=== PATIENT | female | born 1960 | race Caucasian/White ===

== ENCOUNTER 2022-03-26 14:45 | Outpatient (CLI) | payer BC, SELFPAY ==
--- OUTSIDE RECORDS SUMMARY | 2022-04-09 09:07 | XMS_ITS | Clinical Summary ---
:1960 Author Organization [facility] [place] [address] Care Team Providers Name Role Phone Mi Morillo Primary Care Provider [phone] Allergies Active Allergy Reactions Severity Noted Date Comments Venom-Honey Bee Edema 07/29/2020 Pramipexole Dizziness 08/14/2012 Medications Medication Sig Dispensed Refills Start End Date Status Date multivitamin Take 1 tablet by 0 Active (MVI) tablet mouth once daily. 3 triamcinolone Apply topically 15 g 0 Active (ARISTOCORT) 0.5 to affected 7 % area(s) 3 times ointmentIndicatio daily. ns: Dermatitis polyethylene TAKE 17 GRAMS BY 1581 g 3 Active glycoL (MIRALAX) MOUTH ONCE A DAY 9 17 gram/dose DIRECTED powderIndications ADJUST TO SOFT : Chronic STOOL CONSISTENCY constipation meclizine Take 1 tablet by 20 tablet. 0 Ac tive (ANTIVERT) 25 mg mouth 3 times 1 tabletIndications daily if needed : for Vertigo. Lightheadedness, Benign positional vertigo, unspecified laterality gabapentin TAKE 1 TO 2 180 capsule. 4 Acti ve (NEURONTIN) 300 CAPSULES BY MOUTH 2 mg AT BEDTIME capsuleIndication s: Restless legs syndrome (RLS) lidocaine 4 % Apply a thin 30 g 0 Act lucas topical layer topically 2 gelIndications: four times daily Pelvic pain as needed. EPINEPHrine Inject 0.3 mg 2 Each 3 Acti ve (EPIPEN) 0.3 intramuscular 2 mg/0.3 mL each time if auto-injectorIndi needed for cations: History Allergic of colon polyps Reaction. valACYclovir TAKE 1 TABLET 180 Tablet 3 Ac tive (VALTREX) 500 mg (500 MG) BY MOUTH 2 tabletIndications 2 TIMES DAILY. : Oral herpes TAKE 1 TAB BY MOUTH 2 TIMES DAILY valACYclovir Take 1 Tablet 180 tablet. 1 04/04/20 D iscontinued (VALTREX) 500 mg (500 mg) by mouth 1 22 tabletIndications 2 times daily. : Oral herpes TAKE 1 TAB BY MOUTH 2 TIMES DAILY EPINEPHrine Inject 0.15 mL 0 04/04/20 Dis continued (AUVI-Q) 0.15 (0.15 mg) 1 22 mg/0.15 mL atIn intramuscular one auto-injectorIndi time if needed cations: History for Anaphylaxis. of colon polyps cefdinir Take 1 Capsule 14 Capsule 0 03/26/20 Expi red (OMNICEF) 300 mg (300 mg) by mouth 2 22 capsuleIndication two times daily s: Dysuria for 7 days. Active Problems Problem Noted Date Adenomatous colon polyp 07/26/2013 Overview: Colonoscopy 07/2013 polyp repeat in 5 yea rs Colonoscopy 03/2021 normal, repeat in 7 y ears Female stress incontinence 08/12/2012 Restless legs syndrome (RLS) 06/28/2011 Oral herpes 05/12/2010 JUDD III (cervical intraepithelial neoplasia grade III) with severe 11/08/2005 dysplasia Overview: 11/2005 Dobbins: JUDD 2-3. 01/2006 LEEP: JUDD 1 , suspicious for margin involvement. Pap plan: Pap/HPV testing due 02/2021 [facility] recommends: History of CIN2 - CIN3 : Cotesting every 3 years for 20 years. Encounters Date Type Specialty Care Team Description 2022 Ancillary Procedure 2022 Office Visit Mi Morillo Urinary Pro blem (DILSHAD [place] in urine- pain with urine, cant emp ty bladder, freque ncy, bladder leaks) 2022 Refill Mi Morillo Refill Requ est DILSHAD [place] (Epinephrine, Valacyclovir) 2022 Travel 03/21/2022 Telephone Matt Ginny E, John [employer] 03/19/2022 Office Visit Samuel Houser MD 03/19/2022 Travel from Last 3 Months Immunizations Name Administration Dates Next Due AMB Influenza, IIV4 PF (=>6 mos 05/06/2018 Flulaval,Fluzone Fluarix)(Flu Clinic Only) COVID-19 vaccine ([place] [facility] [employer] 11/07/2020, 10/17/2020 30mcg/0.3mL) PF, MDV Influenza, IIV3 (Age >=3 years) 06/01/2015, 05/07/2013, 05/11, 04/08/2011, 05/12/2010, 03/31/2009, 04/29/2008, 05/22/2007 Influenza, IIV4 04/25/2017, 07/12/2016, 04/15/2014 Td (Age >=7 Years) 01/08/2003 Tdap 11/20/2012 Zoster (Zostavax-ZVL, live) 10/20/2013 Family History Medical History Relation Name Comments Good Health Father Hypertension Mother Cancer-breast Paternal Aunt 1 Cancer-colon Paternal Aunt 1 diagnosed at 68 Cancer Paternal Aunt 2 Cancer-breast Sister Mastectomy Relation Name Status Comments Brother Car accident at age 16 years Father Mother Car accident [phone] Paternal Aunt 1 Paternal Aunt 2 Sister Social History Tobacco Use Types Packs/Day Years Used Date Never Smoker Smokeless Tobacco: Never Used Tobacco Cessation: Counseling Given: Yes Alcohol Use Standard Drinks/Week Comments Yes 0 (1 standard drink = 0.6 oz pure alcoho l) Extremely infrequently Sex Assigned at Date Recorded Not on file COVID-19 Exposure Response Date Recorded In the last 10 days, have you been in contact with No / Unsu re 2022 1:38 PM CDT someone who was confirmed or suspected to have Coronavirus/COVID-19? Obstetrics History Para Term AB IAB SAB Ectopic Multiple Living Live Births 3 2 2 1 2 Date Outcome GA Total Labor/2nd/3rd Weight Sex Delivery Anes PTL Michelle A 1 A5 Name Clin Labor Term Term AB Last Filed Vital Signs Vital Sign Reading Time Taken Comments Blood Pressure 143/93 2022 1:58 PM CDT Pulse 69 2022 1:58 PM CDT Temperature 36.5 ??C (97.7 ??F) 2022 1:58 PM CDT Respiratory Rate 16 03/19/2022 3:08 PM CDT Oxygen Saturation 97% 03/19/2022 3:08 PM CDT Inhaled Oxygen Concentration - - Weight 80.7 kg (178 lb) 2022 1:58 PM CDT Height 171.5 cm (5' 7.52) 11/24/2021 7:29 AM CDT Body Mass Index 27.45 11/24/2021 7:29 AM CDT Plan of Treatment Health Maintenance Due Date Last Done Comments Hepatitis C screening for age 0904/02/1980 18-79 Zoster (shingles) series for age 0612/15/2013 10/20/2013 50+ (2 of 3) COVID-19 vaccine series (3 - 01/02/2021 11/07/2020, 021 Booster for Pfizer series) Depression screening for age 12+ 07/29/2021 07/29/2020, 10/2018, 02/14/2018, Additional history exists Influenza for age 50-64 03/11/2022 05/06/2018, 04/25/2017, 07/12/2016, Additional history exists Mammogram for age 45-75 08/18/2022 08/18/2021, 07/29/2020, 03/14/2019, Additional history exists Tetanus booster 11/20/2022 11/20/2012, 01/08/2003 BMI (ht and wt on same day) for 11/24/2022 11/24/2021, 02/0 02/2022, age 18+ 07/29/2020, Additional history exists Lipids for age 45-75 08/18/2026 08/18/2021, 07/29/2020, 03/14/2019, Additional history exists Colonoscopy through age 75 03/20/2028 03/20/2021, , 07/24/2013, Additional history exists Tdap Completed 11/20/2012 Goals Goal Patient Goal Associated Recent Patient-Stated? Author Type Problems Progress BLOOD Blood Pressure No Detert, PRESSURE-DENEEN Hester Callie, JANE BP DO LESS THAN 130/80 Procedures Procedure Name Priority Date/Time Associated Diagnosis Comme nts CT ABDOMEN PELVIS W MENDOZA 2022 3:47 PM Pelvic pain Re sults for this CDT procedure are i n the results section. CREATININE,ISTAT Routine 2022 3:05 PM Observation or Res ults for this CDT evaluation for procedure are in suspected condition the resu lts section. CBC WITH AUTO Routine 2022 3:00 PM Dysuria Results for this DIFFERENTIAL CDT Pelvic pain procedure are i n the results section. CBC WITH AUTO Routine 2022 3:00 PM Dysuria Results for this DIFFERENTIAL CDT Pelvic pain procedure are i n the results section. URINE CULTURE Add On 2022 2:00 PM Dysuria Results for this CDT procedure are i n the results section. URINALYSIS Routine 2022 2:00 PM Dysuria Results f or this MICROSCOPIC CDT procedure are i n the results section. UA W/ SEDIMENT EXAM Routine 2022 2:00 PM Dysuria Re sults for this REFLEXED PER CRITERIA CDT proced ure are in the results section. URINE CULTURE Add On 03/19/2022 3:10 PM Dysuria Results for this CDT procedure are i n the results section. URINALYSIS STAT 03/19/2022 3:10 PM Dysuria Results f or this MICROSCOPIC CDT procedure are i n the results section. UA W/ SEDIMENT EXAM STAT 03/19/2022 3:10 PM Dysuria Re sults for this REFLEXED PER CRITERIA CDT proced ure are in the results section. from Last [address] ABDOMEN PELVIS W (2022 3:47 PM CDT) Anatomical Region Laterality Modality Abdomen, Pelvis, AORTA, LIVER, SPLEEN Co mputed Tomography Specimen (Source) Anatomical Collection Method Collection Time Re ceived Time Location / / Volume Laterality 2022 3:58 PM CDT Narrative 2022 3:58 PM CDT For Patients: ??As a result of the Cures Act, medical imaging exams and procedure report s are released immediately into your [facility] medical record. ??You may view this report before your referring provider. ??If you have questions, please contact your health care provider. Indication: Pelvic pain Technique: Postcontrast CT abdomen and pelvis. Oral water. 100 cc Omnipaque 350 intravenous contrast. Please note that all CT [facility] use dose modulation, iterative reconstruction, and/or weight-based dosing when appropriate to reduce radiation dose to as low as reasonably achievable. Comparison: None Findings: Mild dependent atelectasis in both lower lobes. Mild atelectasis within the anterior right middle lobe and lingula. No pleural effusion. No free intraperitoneal air. No intrahepatic mass or stigmata of cirrhosis. Gallbladder distended without biliary obstruction or calcified gallstone. Pancreas normal. Normal spleen. Adrenal glands unremarkable. No solid renal mass. No renal stone. Incidental small pa rapelvic cysts and extrarenal pelvis on the left. Small extrarenal pelvis on the right. No ureteral stone. No intra-abdominal or intrapelvic adenopathy. The bladder demonstrates a geometric peripherally calcified stone measuring 1.6 cm, serie s 2, image 165 and series 300, image 88. Bladder wall is not thickened. The uterus is absent. No pelvic soft tissue mass. No free fluid or abscess. Stool is prese nt throughout the colon. No bowel obstru ction or diverticulitis. The appendix is unremarkable. No fracture. Incidental bone island in the left femoral head. Impression: Unusual peripherally calcified stone wit hin the left posterior bladder measuring approximately 1.6 cm. No hydronephrosis. Status post hysterectomy without abscess . Increased stool in the colon suggesting constipation. Please note that all CT scans at this [facility] use dose modulation, iterative reconstruction, and/or weight-based dosing when appropriate to reduce radiation dose to as low as reasonably achievable. Dictated by Hector Claros MD @ Apr 02 022 ??3:58PM (Electronically Signed) ?? Procedure Note Hector Claros MD - 2022For matting of this note might be different from the original. For Patients: As a result of the ntury Cures Act, medical imaging exams and procedure reports are released immediately into your electronic medical record. You may view this report before your referring provider. If you have questions, please contact [facility] health care provider. Indication: Pelvic pain Technique: Postcontrast CT abdomen and pelvis. Oral water. 100 cc Omnipaque 350 intravenous contrast. Please note that all CT scans at this [facility] use dose modulation, iterative reconstruction, and/or weight-based dosing when appropriate to reduce radiation dose to as low as reasonably achievable. Comparison: None Findings: Mild dependent atelectasis in both lower lobes. Mild atelectasis within the anterior right middle lobe and lingula. No pleural effusion. No free intraperitoneal air. No intrahepatic mass or stigmata of cirrhosis. Gallbladder distended without biliary ob struction or calcified gallstone. Pancreas normal. Normal spleen. Adrenal glands unremarkable. No solid renal mass. No renal stone. Incidental small parapelvic cysts and extrarenal pelvis on the left. Small ext rarenal pelvis on the right. No ureteral stone. No intra-abdominal or intrapelvic adenopathy. The bladder demonstrates a geometric peripherally calcified stone measuring 1.6 cm, series 2, image 165 and series 300, imag e 88. Bladder wall is not thickened. The uterus is absent. No pelvic soft tissue mass. No free fluid or abscess. Stool is present throughout the colon. No bowel obstruction or diverticulitis. The appendix is unremark able. No fracture. Incidental bone island in the left femoral head. Impression: Unusual peripherally calcified stone wit hin the left posterior bladder measuring approximately 1.6 cm. No hydronephrosis. Status post hysterectomy without abscess . Increased stool in the colon suggesting constipation. Please note that all CT scans at this [facility] use dose modulation, iterative reconstruction, and/or weight-based dosing when appropriate to reduce radiation dose to as low as reasonably achievable. Dictated by Hector Claros MD @ Apr 02 2 022 3:58PM (Electronically Signed) Mi YUNG CT (ABNORMAL) CREATININE,ISTAT (2022 3:05 PM CDT) athologist Signature CREATININE, 0.80 0.57 - 2022 [facility] POCT 1.11 mg/dL 3:09 PM T [facility] Comment: Caution: Patients taking Hydrox yurea have falsely increased iStat Creatinine results. Verify creatinine results order ing a Creatinine (56399.2) eGFR 84 (L) >90 mL/min/1.73m2 2022 3:09 PM CDT [facility] [[email or web address]] Comment: As of 2021, eGFR is calcu lated by the CKD-EPI creatinine equation without race adjustment. eGFR can be inf luenced by muscle mass, exercise, and diet. The reported eGFR is an estimation only and is only applicable if the renal function is stable. Specimen Anatomical Collection Method Collection Time Receive d Time (Source) Location / / Volume Laterality Blood BLOOD SPECIMEN / 2022 3:05 PM 04/02 3:09 Unknown CDT PM CDT Mi YUNG CHEMISTRY Performing Organization Address City/State/ZIP Code Phon e Number [facility] [[email or web address]] [address] [place] [address] CBC WITH AUTO DIFFERENTIAL (2022 3:00 PM CDT) athologist Signature WHITE BLOOD 5.1 4.5 - 11.0 2022 [facility] COUNT thou/cu mm 3:12 PM [facility] RED BLOOD COUNT 4.54 4.00 - 2022 [facility] 5.20 3:12 PM T [place] mil/cu mm CLINIC HEMOGLOBIN 14.5 12.0 - 2022 [facility] 16.0 g/dL 3:12 PM [facility] HEMATOCRIT 42.1 33.0 - 2022 [facility] 51.0 % 3:12 PM [facility] MCV 93 80 - 100 2022 [facility] fL 3:12 PM [facility] MCH 31.9 26.0 - 2022 [facility] 34.0 pg 3:12 PM T [facility] MCHC 34.4 32.0 - 2022 [facility] 36.0 g/dL 3:12 PM [facility] RDW 13.4 11.5 - 2022 [facility] 15.5 % 3:12 PM [facility] PLATELET COUNT 145 140 - 440 2022 [facility] thou/cu mm 3:12 PM [facility] MPV 10.4 6.5 - 11.0 2022 [facility] fL 3:12 PM T [facility] % NEUT 50.9 % 2022 [facility] 3:12 PM CDT [facility] % LYMPH 35.9 % 2022 [facility] 3:12 PM CDT [facility] % MONO 10.6 % 2022 [facility] 3:12 PM CDT [facility] % EOS 2.0 % 2022 [facility] 3:12 PM CDT [facility] % BASO 0.6 % 2022 [facility] 3:12 PM CDT [facility] ABSOLUTE 2.6 1.7 - 7.0 2022 [facility] NEUTROPHILS thou/cu mm 3:12 PM CDT [facility] ABSOLUTE 1.8 0.9 - 2.9 2022 [facility] LYMPHOCYTES thou/cu mm 3:12 PM T [facility] ABSOLUTE 0.5 <0.9 2022 [facility] MONOCYTES thou/cu mm 3:12 PM CDT [facility] ABSOLUTE 0.1 <0.5 2022 [facility] EOSINOPHILS thou/cu mm 3:12 PM CDT [facility] ABSOLUTE 0.0 <0.3 2022 [facility] BASOPHILS thou/cu mm 3:12 PM T [facility] Specimen Anatomical Collection Method / Collection Time Recei kael Time (Source) Location / Volume Laterality Blood BLOOD SPECIMEN / Venipuncture / 2022 3:00 2021 3:00 Unknown Unknown PM CDT PM CDT Mi YUNG HEMATOLOGY Performing Organization Address City/State/ZIP Code Phon e Number [facility] [[email or web address]] [address] [place] [address] (ABNORMAL) URINALYSIS MICROSCOPIC (2022 2:00 PM CDT)Only the most recent of2 resultswithin the time period is included. [facility] Method Time Signature RBC 3-5 (A) 0-2, None 2022 [facility] Seen /HPF 2:21 PM CDT [facility] WBC None Seen 0-2, 3-5, 2022 [facility] None Seen 2:21 PM CDT [place] /HPF CLINIC BACTERIA None Seen None 2022 [facility] Seen, 2:21 PM CDT [place] Rare, Few CLINIC Bacteria/ HPF EPITHELIAL None Seen None 2022 [facility] CELLS Seen, Few 2:21 PM CDT [place] Epi/HPF CLINIC Specimen Anatomical Collection Method Collection Time Receive d Time (Source) Location / / Volume Laterality Urine URINE SPECIMEN / Non-Blood / 2022 2:00 PM 04/02 2:09 Unknown Unknown CDT PM CDT Mi YUNG URINE Performing Organization Address City/State/ZIP Code Phon e Number [facility] [[email or web address]] [address] [place] [address] URINE CULTURE (2022 2:00 PM CDT)Only the most recent of2 resultswithin the time period is included. [facility] Method Time Signature CULTURE <10,000 CFU/mL 04/04/2022 [facility] multiple 7:50 AM CDT [facility]AT[facility]UEL organisms TRAL LABORATORY Specimen Anatomical Collection Method Collection Time Receive d Time (Source) Location / / Volume Laterality Urine URINE SPECIMEN / Non-Blood / 2022 2:00 PM 04/02 2:09 Unknown Unknown CDT PM CDT Mi YUNG MICROBIOLOGY Performing Organization Address City/State/ZIP Code Phon e Number [facility] [address] [place] [address] LABORATORY-CENTRAL 2000 LABORATORY (ABNORMAL) UA W/ SEDIMENT EXAM REFLEXED PER CRITERIA (2022 2:00 PM CDT) Only the most recent of2 resultswithin the time period is included. [facility] [employer] Method Time Signature COLOR Yellow Yellow Color 2022 [facility] 2:21 PM CDT [facility] CLARITY Clear Clear 2022 [facility] Clarity 2:21 PM CDT [facility] SPECIFIC 1.010 1.010, 2022 [facility] GRAVITY,URINE 1.015, 2:21 PM CDT [place] 1.020, 1.025 [facility] PH,URINE 6.0 6.0, 7.0, 2022 [facility] 8.0, 5.5, 2:21 PM CDT [place] 6.5, 7.5, [facility] 8.5 UROBILINOGEN, Normal Normal EU/dl 2022 [facility] 2:21 PM CDT [facility] PROTEIN, Negative Negative 2022 [facility] URINE mg/dL 2:21 PM CDT [facility] GLUCOSE, Negative Negative 2022 [facility] URINE mg/dL 2:21 PM CDT [facility] KETONES,URINE Negative Negative 2022 [facility] mg/dL 2:21 PM CDT [facility] BILIRUBIN,URI Negative Negative 2022 [facility] NE 2:21 PM CDT [facility] OCCULT Trace (A) Negative 2022 [facility] BLOOD,URINE 2:21 PM CDT [facility] NITRITE Negative Negative 2022 [facility] 2:21 PM CDT [facility] LEUKOCYTE Negative Negative 2022 [facility] ESTERASE 2:21 PM CDT [facility] Specimen Anatomical Collection Method Collection Time Receive d Time (Source) Location / / Volume Laterality Urine URINE SPECIMEN / Non-Blood / 2022 2:00 PM 04/02 2:09 Unknown Unknown CDT PM CDT Mi YUNG URINE Performing Organization Address City/State/ZIP Code Phon e Number [facility] [[email or web address]] [address] [place] [address] from Last 3 Months Insurance Payer Benefit Plan / Subscriber ID Effective Dates Phone Addre ss Type Group [employer] OF [id number] 2013-Present [id number] [place] [address] [employer] OF [id number] 2021-Present [address] [address] [place] [address] Kailyn Zafar Personal/Family Self 1960 [address] [phone] [employer] (Work) [id number] Kailyn Zafar Personal/Family Self 1960 [address] [phone] [employer] (Work) [id number] Care Teams 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
== END 2022-03-26 14:46 | disposition home or self-care (01) ==
LOC: NFLDREF 04-09 08:55
PROVIDERS: Visit Provider Obstetrics & Gynecology
DX: R30.0 Dysuria (principal); R35.0 Frequency of micturition; R10.2 Pelvic and perineal pain
CPT/HCPCS: 87086